=== PATIENT | male | born 1975 | race Hispanic/Latino ===

== ENCOUNTER 2019-10-23 08:59 | Emergency (ER) | payer OTHER ==
[~2019-10-23] VITALS: Ht 165.1 cm; Wt 129.7 kg
[~2019-10-23 08:59] MED LIST: AMOXICILLIN250 MG PO; AMOXICILLIN500 M1 PO; CLARITHROMYCIN500 MG PO; CRESTOR10 MG PO; DRISDOL50000 UNIT PO; LANSOPRAZOLE30 MG PO; LISINOPRIL2.5 MG PO; LOMOTIL TABLET1 EACH PO; METFORMIN HCL500 MG PO; OMEPRAZOLE40 MG PO; PHENTERMINE H37.5 MG PO; PROMETHAZINE HC25 M1 PO; TYLENOL # 31 EA PO; ZOFRAN ODT4 MG PO
[2019-10-23] MEDS ORDERED: SODIUM CHLORIDE 0.9% 1000ML 1,000 ML IV STA (09:04)
[2019-10-23] MEDS ORDERED: PANTOPRAZOLE 40 MG 10ML VIAL IV STA (09:04)
[2019-10-23] MEDS ORDERED: ONDANSETRON HCL INJ 2MG/ML 2ML 2 MG/ML VIAL IV STA (09:04)
--- OUTSIDE RECORDS SUMMARY | 2019-10-23 09:10 | XMS REPORT | Continuity of Care Document ---
Author Author [facility] t Organization [facility] Address [address] [place] [address] Phone Unavailable Care Team Providers Care Solution Consultant Name Role Phone FRIDA Garcia, [facility] PCP Eliceo CALVO Attphys Unavailable Liudmila OLIVAREZ Attphys Unavailable Payers Payer Name Policy Type Policy Number Effective Date Expiration Date Niya Christopher [facility] [id number] 2019 00:00:00 [facility] Problems Condition Name Condition Details Condition Category Status Onset Date Resolution Date Last Treatment Date Treating Clinician Comments Source Accidentally crushed by object Crush accident Problem Active [facility] Laceration Laceration Problem Active [facility] Allergies, Adverse Reactions, Alerts This patient has no known allergies or adverse reactions. Medications Ordered Medication Name Filled Medication Name Start Date Stop Da te Current Medication? Ordering Clinician Indication Dosage Frequency Signature (SIG) Comments Components Source Lisinopril 2.5 Mg Tablet Lisinopril 2.5 Mg Tablet Yes 5 Daily [facility] Metformin Hcl 500 Mg Tablet Metformin Hcl 500 Mg Tablet Yes 500 Twice A Day [facility] Phentermine Hcl 37.5 Mg Capsule Phentermine Hcl 37.5 Mg Capsule Yes 37.5 Daily [facility] Rosuvastatin Calcium (Crestor) 10 Mg Tab Rosuvastatin Calcium (Crestor) 10 Mg Tab Yes 10 Daily [facility] Acetaminophen/Codeine Phosphate (Tylenol # 3*) 1 Ea Ta b, 1 Tab Oral Acetaminophen/Codeine Phosphate (Tylenol # 3*) 1 Ea Tab, 1 Tab Oral 2016-06-07 00:00:00 No 1 Every 4 Hours as needed for Abd ominal Pain [facility] Diphenoxylate Hcl/Atropine (Lomotil Tablet) 1 Each Tab let, 1 Tab Oral Diphenoxylate Hcl/Atropine (Lomotil Tablet) 1 Each Tablet, 1 Tab Oral 2016-06-07 00:00:00 No 1 Every 8 Hours [facility] Ergocalciferol (Drisdol) 50,000 Unit Cap, 2 Cap Oral E rgocalciferol (Drisdol) 50,000 Unit Cap, 2 Cap Oral 2016-06-07 00:00:00 No 2 Use As Directed [facility] Ondansetron (Zofran Odt) 4 Mg Tab.rapdis, 4 Mg Oral On dansetron (Zofran Odt) 4 Mg Tab.rapdis, 4 Mg Oral 2016-06-07 00:00:00 No 4 Every 8 Hours [facility] Amoxicillin 250 Mg Capsule, 500 Mg Oral Amoxicillin 250 Mg C apsule, 500 Mg Oral 2015-02-04 00:00:00 No 500 Twice A Day [facility] Clarithromycin 500 Mg Tablet, 500 Mg Oral Clarithromyc in 500 Mg Tablet, 500 Mg Oral 2015-02-04 00:00:00 No 500 Twice A Day [facility] Omeprazole 40 Mg Capsule., 40 Mg Oral Omeprazole 40 Mg Cap ino., 40 Mg Oral 2015-02-04 00:00:00 No 40 Daily [facility] Amoxicillin 500 Mg Tablet, 500 Mg Oral Amoxicillin 500 Mg Tablet , 500 Mg Oral 2013-09-30 00:00:00 No 500 Twice A Day [facility] Clarithromycin 500 Mg Tablet, 500 Mg Oral Clarithromyc in 500 Mg Tablet, 500 Mg Oral 2013-09-30 00:00:00 No 500 Twice A Day [facility] Lansoprazole 30 Mg Capsule., 30 Mg Oral Lansoprazole 30 Mg Capsule., 30 Mg Oral 2013-09-30 00:00:00 No 30 Twice A Day [facility] Promethazine Hcl 25 Mg Tablet, 25 Mg Oral Promethazine Hcl 25 Mg Tablet, 25 Mg Oral 2013-09-30 00:00:00 No 25 Q4-6HRS Prn [facility] Procedures Procedure Date / Time Performed Performing Clinician [facility] e X-ray of chest, two views 2019-03-20 00:00:00 MARGARITO CALVO [facility] Encounters Start Date/Time End Date/Time Encounter [facility] En[facility] ID Source 2019-03-20 20:42:00 2019-03-20 23:00:00 Departed Emergency Room 1 LUCY CALVO [facility] [id number] [facility] Results Test Description Test Time Test Comments Results Result Comments Source CHEST 2 VIEWS 2019-03-20 22:46:00 [facility] [address] [address] Patient Name: CRISTINA SEVILLA MR #: [id number] : 1975 Age/Sex: 43/M Req #: [id number] Adm Physician: Ordered by: LUCY CALVO MD Report #: [id number] Location: ER Room/Bed: Procedure: [id number] DX/CHEST 2 VIEWS Exam Date: 03/20/19 Exam Time: 2124 REPORT STATUS: Signed EXAMINATION: CHEST 2 VIEWS INDICATION: Cough, fever COMPARISON: Chest x-ray 09/23/2013 FINDINGS: TUBES and LINES: None. LUNGS: Normal lung volumes. Mild central bronchial wall thickening. Mild right infrahilar haziness. PLEURA: No pleural effusion or pneumothorax. HEART AND MEDIASTINUM: The cardiomediastinal silhouette is unremarkable. BONES AND SOFT TISSUES: No acute osseous lesion. Soft tissues are unremarkable. UPPER ABDOMEN: No free air under the diaphragm. IMPRESSION: Findings of bronchitis. Mild right infrahilar haziness can be due to atelectasis and/or pneumonia. Recommend follow-up chest radiograph in 6-8 weeks. Signed by: Matt Hand DO on 03/20/2019 10:49 PM Dictated By: MATT HAND DO 48 Transcribed By: DEMETRIS on 03/20/192248 COPY TO: LUCY CALVO MD Influenza Virus Types A,B Antigen 2019-03-20 21:45:00 Test Item Influenza Virus Types A,B Antigen (test code = 94456-1) [facility]IVE [facility] St[facility] [id number] 21:33:00* Test Item Value Reference Range Interpretation Comments Group A Streptococcus Screen (test code = 30394-2) NE[facility]IVE [facility]IVE [facility] [address] [place] [address] Patient Name: CRISTINA SEVILLA MR #: [id number] : 1975 Age/Sex: 41/M Req #: [id number] Adm Physician: Ordered by: SALLY IBARRA Report #: [id number] Location: ER Room/Bed: Procedure: [id number] DX/FINGER LEFT Exam Date: 11/15/16 Exam Time: 1649 REPORT STATUS: Signed Exam: Left finger 3 views History: Pain Comparison: None. Findings: No fracture or malalignment. Joint spaces preserved. No abnormal soft tissue calcification or soft tissue defect. Impression: No acute osseous abnormality Signed by: Dr. Franklin Nelson M.D. on 11/15/2016 5:0 4 PM Dictated By: FRANKLIN NELSON MD 03 COPY TO: SALLY IBARRA
[2019-10-23] MEDS ORDERED: MORPHINE SULFATE INJ 4 MG/ML INJ 1ML IV PRN (09:15)
--- NOTE | 2019-10-23 09:18 | Emergency Department Note ---
History of Present Illnes History of Present Illness Chief Complaint: Abdominal Complaints History of Present Illness This is a 44 year old male arrives to the ED with left lower quadrant abdominal pain for 1 day, states he had dinner afterwards symptoms began. Patient also complains nausea and vomiting as well as diarrhea. Denies any fevers, no history of colitis or other GI issues. Onset (how long ago): day(s) Radiation: Reports non-radiation Severity: mild Duration (how long): day(s) Timing of current episode: intermittent Progression: unchanged Chronicity: new Context: Denies recent illness Relieving factors: none Associated symptoms: Reports denies other symptoms Past Medical/Family History Physician Review I have reviewed the patient's past medical and family history. Any updates have been documented here. Past Medical History Past Medical History: None Other Surgery: LT KNEE SCOPE Social History Smoking Cessation: Never Smoker Alcohol Use: Social Any Illegal Drug Use: No Other Last Tetanus: UNK Review of Systems Review of Systems Constitutional: Reports no symptoms EENTM: Reports no symptoms Cardiovascular: Reports no symptoms Respiratory: Reports no symptoms Gastrointestinal: Reports no symptoms, Reports as per HPI, Reports abdominal pain, Reports nausea, Reports vomiting Genitourinary: Reports no symptoms Musculoskeletal: Reports no symptoms Integumentary: Reports no symptoms Neurological: Reports no symptoms Psychological: Reports no symptoms Endocrine: Reports no symptoms Hematological/Lymphatic: Reports no symptoms Physical Exam Related Data Allergies: Coded Allergies: No Known Drug Allergies (Verified Allergy, Unknown, 06/07/16) Vital signs reviewed: Yes Physical Exam CONSTITUTIONAL Constitutional: Present well-developed, Present well-nourished HENT HENT: Present normocephalic, Present atraumatic, Present oropharynx clear/moist, Present nose normal HENT L/R: Present left ext ear normal, Present right ext ear normal EYES Eyes: Reports PERRL, Reports conjunctivae normal NECK Neck: Present ROM normal PULMONARY Pulmonary: Present effort normal, Present breath sounds normal CARDIOVASCULAR Cardiovascular: Present regular rhythm, Present heart sounds normal, Present capillary refill normal, Present normal rate GASTROINTESTINAL Abdominal: Present soft, Present bowel sounds normal, Present tender GENITOURINARY Genitourinary: Present exam deferred SKIN Skin: Present warm, Present dry MUSCULOSKELETAL Musculoskeletal: Present ROM normal NEUROLOGICAL Neurological: Present alert, Present oriented x 3, Present no gross motor or sensory deficits PSYCHOLOGICAL Psychological: Present mood/affect normal, Present judgement normal Results Laboratory Lab results reviewed: Yes Laboratory comments Laboratory Tests Test 10/23/19 09:35 10/23/19 09:13 Urine Color Yellow (YELLOW) Urine Clarity Clear (CLEAR) Urine pH 5 (5 - 7) Urine Specific Simpson 1.020 (1.010-1.025) Urine Protein Negative (NEGATIVE) Urine Glucose (UA) Negative (NEGATIVE) Urine Ketones Negative (NEGATIVE) Urine Blood Trace (NEGATIVE) Urine Nitrite Negative (NEGATIVE) Urine Bilirubin Negative (NEGATIVE) Urine Urobilinogen 0.2 mg/dL (0.2 - 1) Urine Leukocyte Esterase Negative (NEGATIVE) Urine RBC 6-10 /HPF (0-5) Urine WBC 6-10 /HPF (0-5) Urine Epithelial Cells Few /LPF (NONE) Urine Bacteria Rare /HPF (NONE) Urine Opiates Screen Negative (NEGATIVE) Urine Methadone Screen Negative (NEGATIVE) Urine Barbiturates Screen Negative (NEGATIVE) Urine Phencyclidine Screen Negative (NEGATIVE) Urine Amphetamines Screen Negative (NEGATIVE) Urine Methamphetamines Screen Negative (NEGATIVE) Urine Benzodiazepines Screen Negative (NEGATIVE) Urine Cocaine Screen Negative (NEGATIVE) Urine Cannabinoids Screen Negative (NEGATIVE) White Blood Count 10.66 x10e3/uL (4.8-10.8) Red Blood Count 4.90 x10e6/uL (4.3-5.7) Hemoglobin 14.8 g/dL (14.0-18.0) Hematocrit 44.6 % (38.2-49.6) Mean Corpuscular Volume 91.0 fL (81-99) Mean Corpuscular Hemoglobin 30.2 pg (28-32) Mean Corpuscular Hemoglobin Concent 33.2 g/dL (31-35) Red Cell Distribution Width 12.7 % (11.7-14.4) Platelet Count 344 x10e3/uL (140-360) Neutrophils (%) (Auto) 83.5 % (38.7-80.0) Lymphocytes (%) (Auto) 11.0 % (18.0-39.1) Monocytes (%) (Auto) 4.5 % (4.4-11.3) Eosinophils (%) (Auto) 0.4 % (0.0-6.0) Basophils (%) (Auto) 0.2 % (0.0-1.0) Neutrophils # (Auto) 8.9 (2.1-6.9) Lymphocytes # (Auto) 1.2 (1.0-3.2) Monocytes # (Auto) 0.5 (0.2-0.8) Eosinophils # (Auto) 0.0 (0.0-0.4) Basophils # (Auto) 0.0 (0.0-0.1) Absolute Immature Granulocyte (auto 0.04 x10e3/uL (0-0.1) Sodium Level 138 mmol/L (136-145) Potassium Level 4.1 mmol/L (3.5-5.1) Chloride Level 102 mmol/L (98-107) Carbon Dioxide Level 22 mmol/L (22-29) Anion Gap 18.1 mmol/L (8-16) Blood Urea Nitrogen 14 mg/dL (7-26) Creatinine 0.96 mg/dL (0.72-1.25) Estimat Glomerular Filtration Rate > 60 ML/MIN (60-) BUN/Creatinine Ratio 15 (6-25) Glucose Level 110 mg/dL (74-118) Calcium Level 9.9 mg/dL (8.4-10.2) Total Bilirubin 0.5 mg/dL (0.2-1.2) Aspartate Amino Transf (AST/SGOT) 17 IU/L (5-34) Alanine Aminotransferase (ALT/SGPT) 30 IU/L (0-55) Alkaline Phosphatase 76 IU/L (40-150) Creatine Kinase 57 IU/L (30-200) Creatine Kinase MB 1.20 ng/mL (0-5.0) Troponin I 0.021 ng/mL (0-0.300) Total Protein 8.4 g/dL (6.5-8.1) Albumin 4.2 g/dL (3.5-5.0) Globulin 4.2 g/dL (2.3-3.5) Albumin/Globulin Ratio 1.0 (0.8-2.0) Lipase < 4 U/L (8-78) Imaging Imaging results reviewed: Yes Impressions IMPRESSION: 1. No acute abdominopelvic abnormality identified. 2. Prominent mediastinal, particularly in the right lower quadrant of unknown clinical significance and likely benign. However, this can also be seen with mesenteric adenitis, a self-limiting inflammatory process. Signed by: Alejandro Chase MD on 10/23/2019 10:26 AM Assessment & Plan Medical Decision Making MDM This patient presents with abdominal pain of unclear etiology. A CT scan was p erformed to evaluate for potential causes of the abdominal pain, however, neither the clinical exam nor the CT has identified an emergent etiology for the abdominal pain. Specifically, given the benign exam, the laboratory studies, and unremarkable CT, I have a very low suspicion for appendicitis, ischemic bowel, bowel perforation, or any other life threatening disease. I have discussed with the patient the level of uncertainty with undifferentiated abdominal pain and clearly explained the need to follow-up as noted on the discharge instructions, or return to the Emergency Department immediately if the pain worsens, develops fever, persistent and uncontrollable vomiting, or for any new symptoms or concerns. Assessment & Plan Final Impression: (1) Abdominal pain Depart Disposition: HOME, SELF-skilled nursing Meds Active Scripts Ondansetron Hcl* (ZOFRAN*) 4 Mg Tablet, 4 MG SL Q6H PRN for NAUSEA, #14 MG 0 Refills Prov:ABEL ALCANTARA DO 10/23/19 Metronidazole (FLAGYL) 500 Mg Tablet, 500 MG PO Q8HR, #30 Prov:ABEL ALCANTARA DO 10/23/19 Ciprofloxacin Hcl (CIPRO) 500 Mg Tablet, 500 MG PO BID, #20 TAB 0 Refills Prov:ABEL ALCANTARA DO 10/23/19 Reported Medications Lisinopril (LISINOPRIL) 2.5 Mg Tablet, 5 MG PO DAILY, #30 TAB 06/07/16 Rosuvastatin Calcium (CRESTOR) 10 Mg Tab, 10 MG PO DAILY THERAPEUTICALLY SUBSTITUTED WITH SIMVASTATIN 40MG 06/07/16 Phentermine Hcl (PHENTERMINE HCL) 37.5 Mg Capsule, 37.5 MG PO DAILY 08/02/15 Metformin Hcl (METFORMIN HCL) 500 Mg Tablet, 500 MG PO BID, #60 TAB 08/02/15 ABEL ALCANTARA DO Oct 23, 2019 09:19
[2019-10-23 09:26] LABS: BASOPHILS % 0.2 % (0.0-1.0); EOSINOPHILS % 0.4 % (0.0-6.0); HEMATOCRIT 44.6 % (38.2-49.6); HEMOGLOBIN 14.8 g/dL (14.0-18.0); LYMPHOCYTES # (AUTO) 1.2 (1.0-3.2); MEAN CORPUSCULAR HEMOGLOBIN 30.2 pg (28-32); MEAN CORPUSCULAR HGB CONC 33.2 g/dL (31-35); MONOCYTES # (AUTO) 0.5 (0.2-0.8); MONOCYTES % 4.5 % (4.4-11.3); NEUTROPHILS # (AUTO) 8.9 (2.1-6.9); NEUTROPHILS % 83.5 % (38.7-80.0); PLATELET COUNT 344 x10e3/uL (140-360); RED CELL DISTRIBUTION WIDTH 12.7 % (11.7-14.4)
[2019-10-23 09:47] LABS: ALANINE AMINOTRANSFERASE 30 IU/L (0-55); ALBUMIN 4.2 g/dL (3.5-5.0); ALKALINE PHOSPHATASE 76 IU/L (40-150); ANION GAP 18.1 mmol/L (8-16); BLOOD UREA NITROGEN 14 mg/dL (7-26); BUN/CREATININE RATIO 15 (6-25); CALCIUM 9.9 mg/dL (8.4-10.2); CARBON DIOXIDE 22 mmol/L (22-29); CHLORIDE 102 mmol/L (98-107); CREATINE KINASE 57 IU/L (30-200); CREATININE, SERUM 0.96 mg/dL (0.72-1.25); EST GLOMERULAR FILTRATION RATE > 60 ML/MIN (60-); GLUCOSE 110 mg/dL (74-118); POTASSIUM 4.1 mmol/L (3.5-5.1); SODIUM 138 mmol/L (136-145)
[2019-10-23 10:18] LABS: CLARITY,URINE CLEAR (CLEAR); COLOR,URINE YELLOW (YELLOW); LEUKOCYTE ESTERASE ,URINE NEGATIVE (NEGATIVE); NITRITE,URINE NEGATIVE (NEGATIVE); PROTEIN,URINE DIPSTICK NEGATIVE (NEGATIVE)
[2019-10-23 10:19] LABS: AMPHETAMINES SCREEN,URINE NEGATIVE (NEGATIVE); BENZODIAZEPINES SCREEN,URINE NEGATIVE (NEGATIVE); BILIRUBIN,URINE NEGATIVE (NEGATIVE); KETONES,URINE NEGATIVE (NEGATIVE); PHENCYCLIDINE SCREEN,URINE NEGATIVE (NEGATIVE); URINE UROBILINOGEN 0.2 mg/dL (0.2 - 1)
[2019-10-23 10:29] LABS: BACTERIA,URINE RARE /HPF; EPITHELIAL CELLS,URINE FEW /LPF
--- NOTE | 2019-10-23 10:29 | Diagnostic Imaging Report ---
EXAM: CT Abdomen and Pelvis WITH contrast INDICATION: Abdominal pain. COMPARISON: None. TECHNIQUE: Abdomen and pelvis were scanned utilizing a multidetector helical scanner from the lung base to the pubic symphysis after administration of IV contrast. Coronal and sagittal reformations were obtained. Routine protocol was performed. Scan was performed when during portal venous phase. IV CONTRAST: 100 mL of Isovue 370 ORAL CONTRAST: None COMPLICATIONS: None RADIATION DOSE: Total DLP: 775.12 mGy*cm Estimated effective dose: (DLP x 0.015 x size factor) mSv CTDIvol has been reviewed. It is below the limits set by the Radiation Protocol Committee (RPC). Dose modulation, iterative reconstruction, and/or weight based adjustment of the mA/kV was utilized to reduce the radiation dose to as low as reasonably achievable. FINDINGS: LINES and TUBES: None. LOWER THORAX: Unremarkable HEPATOBILIARY: No focal hepatic lesions. No biliary ductal dilation. GALLBLADDER: No radio-opaque stones or sludge. No wall thickening. SPLEEN: No splenomegaly. PANCREAS: Fatty atrophy of the pancreas. No focal masses or ductal dilatation. ADRENALS: No adrenal nodules KIDNEYS/URETERS: Kidneys enhance symmetrically. No hydronephrosis. There is a cyst in the upper pole of the right kidney which measures approximately 6 cm. No stones. GI TRACT: No abnormal distention, wall thickening, or evidence of bowel obstruction. Appendix is normal. PELVIC ORGANS/BLADDER: Unremarkable. LYMPH NODES: There are multiple prominent mesenteric lymph nodes, particularly in the right lower quadrant, none of which meet criteria for pathologic enlargement. No lymphadenopathy. VESSELS: Unremarkable. PERITONEUM / RETROPERITONEUM: No free air or fluid. BONES: There are degenerative changes in the spine. SOFT TISSUES: Unremarkable. IMPRESSION: 1. No acute abdominopelvic abnormality identified. 2. Prominent mediastinal, particularly in the right lower quadrant of unknown clinical significance and likely benign. However, this can also be seen with mesenteric adenitis, a self-limiting inflammatory process. Signed by: Alejandro Chase MD on 10/23/2019 10:26 AM
[2019-10-23 10:48] VITALS: BP 149/71
[2019-10-23] MEDS ORDERED: FLAGYL500 MG PO (10:52)
[2019-10-23] MEDS ORDERED: ZOFRAN4 MG SL (10:52)
[2019-10-23] MEDS ORDERED: CIPRO500 MG PO (10:52)
[2019-10-23] MEDS ORDERED: SODIUM CHLORIDE 0.9% 50ML 50 ML ONE (12:00)
[2019-10-23] MEDS ORDERED: IOPAMIDOL 370 MG/ML 200 ML INFUS..BTL INJ ONE (12:00)
== END 2019-10-23 11:00 | disposition home or self-care (01) ==
LOC: ER 09:07
DX: R10.32 Left lower quadrant pain (principal); R11.2 Nausea with vomiting, unspecified; R19.7 Diarrhea, unspecified
CPT/HCPCS: 36415; 74177; 80053; 80307; 81001; 82550; 82553; 83690; 84484; 85025; 99284; C9113; J2270; J2405; J7030; Q9967

== ENCOUNTER 2020-08-01 13:26 | Emergency (ER) | payer OTHER ==
[~2020-08-01] VITALS: Ht 165.1 cm; Wt 129.7 kg
[~2020-08-01 13:26] MED LIST changes: +CIPRO500 MG PO; +FLAGYL500 MG PO; +ZOFRAN4 MG SL
[2020-08-01] MEDS ORDERED: SODIUM CHLORIDE 0.9% 1000ML 1,000 ML IV STA (13:31)
[2020-08-01] MEDS ORDERED: ONDANSETRON HCL INJ 2MG/ML 2ML 2 MG/ML VIAL IV PRN (13:45)
[2020-08-01] MEDS ORDERED: PANTOPRAZOLE 40 MG 10ML VIAL IV STA (14:06)
[2020-08-01 14:39] LABS: BASOPHILS % 0.2 % (0.0-1.0); EOSINOPHILS # (AUTO) 0.1 (0.0-0.4); EOSINOPHILS % 0.5 % (0.0-6.0); HEMATOCRIT 43.6 % (38.2-49.6); HEMOGLOBIN 14.4 g/dL (14.0-18.0); LYMPHOCYTES # (AUTO) 0.6 (1.0-3.2); LYMPHOCYTES % 5.1 % (18.0-39.1); MEAN CORPUSCULAR HEMOGLOBIN 29.5 pg (28-32); MEAN CORPUSCULAR VOLUME 89.3 fL (81-99); MONOCYTES # (AUTO) 0.5 (0.2-0.8); MONOCYTES % 4.1 % (4.4-11.3); NEUTROPHILS # (AUTO) 10.1 (2.1-6.9); NEUTROPHILS % 89.7 % (38.7-80.0); PLATELET COUNT 322 x10e3/uL (140-360); RED BLOOD COUNT 4.88 x10e6/uL (4.3-5.7); RED CELL DISTRIBUTION WIDTH 13.3 % (11.7-14.4)
[2020-08-01 14:43] LABS: CLARITY,URINE SL CLOUDY (CLEAR); COLOR,URINE YELLOW (YELLOW); KETONES,URINE NEGATIVE (NEGATIVE); LEUKOCYTE ESTERASE ,URINE NEGATIVE (NEGATIVE); NITRITE,URINE NEGATIVE (NEGATIVE); PROTEIN,URINE DIPSTICK NEGATIVE (NEGATIVE); URINE UROBILINOGEN 0.2 mg/dL (0.2 - 1)
[2020-08-01 14:55] LABS: ALANINE AMINOTRANSFERASE 26 IU/L (0-55); ALBUMIN 4.2 g/dL (3.5-5.0); ALKALINE PHOSPHATASE 79 IU/L (40-150); ANION GAP 17.1 mmol/L (8-16); BACTERIA,URINE RARE /HPF; BLOOD UREA NITROGEN 22 mg/dL (7-26); BUN/CREATININE RATIO 22 (6-25); CALCIUM 9.5 mg/dL (8.4-10.2); CARBON DIOXIDE 23 mmol/L (22-29); CHLORIDE 103 mmol/L (98-107); CREATININE, SERUM 1.02 mg/dL (0.72-1.25); EST GLOMERULAR FILTRATION RATE > 60 ML/MIN (60-); GLUCOSE 115 mg/dL (74-118); LIPASE 4 U/L (8-78); POTASSIUM 4.1 mmol/L (3.5-5.1); SODIUM 139 mmol/L (136-145); URIC ACID CRYSTALS,URINE FEW (FEW)
[2020-08-01] MEDS ORDERED: ONDANSETRON ODT4 MG PO (17:10)
[2020-08-01] MEDS ORDERED: IBUPROFEN 600 MG TAB PO STA (17:13)
== END 2020-08-01 17:27 | disposition home or self-care (01) ==
LOC: ER 13:57
DX: R10.13 Epigastric pain (principal); K80.20 Calculus of gallbladder without cholecystitis without obstruction; I10 Essential (primary) hypertension; E78.5 Hyperlipidemia, unspecified; K21.9 Gastro-esophageal reflux disease without esophagitis; E66.01 Morbid (severe) obesity due to excess calories
CPT/HCPCS: 36415; 76705; 80053; 81001; 83690; 84484; 85025; 93005; 99284; C9113; J2405; J7030

== ENCOUNTER 2023-10-19 16:58 | Emergency (ER) | payer OTHER ==
[~2023-10-19] VITALS: Ht 165.1 cm; Wt 129.7 kg
[~2023-10-19 16:58] MED LIST changes: +ONDANSETRON ODT4 MG PO
[2023-10-19 17:04] VITALS: TEMP 98.5
[2023-10-19 17:45] VITALS: PULSE 79; RESP 16
[2023-10-19] MEDS: ACETAMINOPHEN 325 MG TAB PO ONE (18:50)
[2023-10-19 19:07] VITALS: BP 150/80; PULSE 75; RESP 16; TEMP 98.3; O2SAT 98
== END 2023-10-19 19:07 | disposition home or self-care (01) ==
LOC: ER 17:20
DX: R51.9 Headache, unspecified (principal); I10 Essential (primary) hypertension; E78.5 Hyperlipidemia, unspecified; R73.03 Prediabetes; K21.9 Gastro-esophageal reflux disease without esophagitis; E66.01 Morbid (severe) obesity due to excess calories
CPT/HCPCS: 70450; 99283

== ENCOUNTER 2024-05-20 22:24 | Emergency (ER) | payer OTHER ==
[~2024-05-20] VITALS: Ht 165.1 cm; Wt 129.7 kg
[2024-05-20 23:04] VITALS: TEMP 98.1
[2024-05-20] MEDS: ONDANSETRON HCL INJ 2MG/ML 2ML 2 MG/ML VIAL IV STA (23:30)
[2024-05-20] MEDS: SODIUM CHLORIDE 0.9% 1000ML 1,000 ML IV STA (23:31)
[2024-05-20 23:44] LABS: BASOPHILS % 0.3 % (0.0-1.0); EOSINOPHILS # (AUTO) 0.2 (0.0-0.4); EOSINOPHILS % 2.4 % (0.0-6.0); HEMATOCRIT 43.2 % (38.2-49.6); HEMOGLOBIN 15.1 g/dL (14.0-18.0); LYMPHOCYTES # (AUTO) 1.6 (1.0-3.2); LYMPHOCYTES % 17.5 % (18.0-39.1); MEAN CORPUSCULAR HEMOGLOBIN 31.9 pg (28-32); MEAN CORPUSCULAR VOLUME 91.3 fL (81-99); MONOCYTES # (AUTO) 0.6 (0.2-0.8); NEUTROPHILS # (AUTO) 6.5 (2.1-6.9); NEUTROPHILS % 72.5 % (38.7-80.0); PLATELET COUNT 297 x10e3/uL (140-360); RED BLOOD COUNT 4.73 x10e6/uL (4.3-5.7); RED CELL DISTRIBUTION WIDTH 12.6 % (11.7-14.4); WHITE BLOOD COUNT 8.99 x10e3/uL (4.8-10.8)
[2024-05-21 00:01] LABS: ALBUMIN 4.5 g/dL (3.5-5.0); ALBUMIN/GLOBULIN RATIO 1.2 (0.8-2.0); ANION GAP 16.3 mmol/L (8-16); BILIRUBIN,TOTAL 0.7 mg/dL (0.2-1.2); CALCIUM 9.8 mg/dL (8.4-10.2); CREATININE, SERUM 1.13 mg/dL (0.72-1.25); POTASSIUM 4.3 mmol/L (3.5-5.1); TOTAL PROTEIN 8.3 g/dL (6.5-8.1)
[2024-05-21] MEDS ORDERED: IOPAMIDOL 370 MG/ML 100 ML INFUS..BTL INJ ONE (00:33)
[2024-05-21 01:17] VITALS: PULSE 85; RESP 18
[2024-05-21 02:16] VITALS: BP 136/72; PULSE 72; RESP 18; TEMP 98.1; O2SAT 98
== END 2024-05-20 23:57 | disposition home or self-care (01) ==
LOC: ER 22:29
DX: R10.33 Periumbilical pain (principal); R11.2 Nausea with vomiting, unspecified; R19.7 Diarrhea, unspecified; I10 Essential (primary) hypertension; E11.9 Type 2 diabetes mellitus without complications; E78.5 Hyperlipidemia, unspecified; K21.9 Gastro-esophageal reflux disease without esophagitis; E66.01 Morbid (severe) obesity due to excess calories; Z96.652 Presence of left artificial knee joint
CPT/HCPCS: 36415; 74177; 80053; 83690; 85025; 99284; J2405; J7030; Q9967

== ENCOUNTER 2024-09-10 13:35 | Emergency (ER) | payer OTHER ==
[~2024-09-10] VITALS: Ht 162.6 cm; Wt 104.3 kg
[2024-09-10] MEDS ORDERED: CYCLOBENZAPRINE10 MG PO (14:53)
[2024-09-10 15:00] VITALS: PULSE 66; RESP 18; TEMP 98.2
[2024-09-10 15:53] VITALS: BP 152/91; PULSE 69; RESP 18; TEMP 98.3; O2SAT 99
== END 2024-09-10 15:55 | disposition home or self-care (01) ==
LOC: ER 14:39
DX: M79.604 Pain in right leg (principal); S76.811A Strain of other specified muscles, fascia and tendons at thigh level, right thigh, initial encounter; X50.1XXA Overexertion from prolonged static or awkward postures, initial encounter; Y92.89 Other specified places as the place of occurrence of the external cause; I10 Essential (primary) hypertension; R73.03 Prediabetes; E78.5 Hyperlipidemia, unspecified; K21.9 Gastro-esophageal reflux disease without esophagitis; E66.01 Morbid (severe) obesity due to excess calories; Z96.652 Presence of left artificial knee joint
CPT/HCPCS: 99283